=== PATIENT | male | born 1950 | race Caucasian/White ===

== ENCOUNTER → 2020-02-03 07:34 | Outpatient (CLI) | payer SELFPAY ==
--- NOTE | 2020-02-03 07:35 | MR_ITS ---
PROCEDURE: MR ANGIO HEAD WO CON CLINICAL INDICATION: eval for posterior circulation pathology evaluate for posterior circulation pathology. Pt states since dec. 9 of this year he cannot open left eye and if forced open he c/o double visoin. COMPARISON: There are no exams available for comparison, TECHNIQUE: Routine multiplanar multi echo sequences are performed without gadolinium enhancement. FINDINGS: Both vertebral arteries are patent intracranially. The right vertebral is dominant. The basilar artery has an unremarkable appearance giving rise to the posterior cerebral artery on both sides. The left posterior cerebral artery is smaller than the right is specially in its peripheral branches with poor visualization of the peripheral posterior aspect of the left posterior cerebral artery. No obvious aneurysm. 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 The left ICA is somewhat prominent. There is some lobularity the lumen of the left ICA at the sellar portion posteriorly at approximately 2 mm projecting posteriorly suspicious for small aneurysm. There is an additional area of lobulation of the lumen of the left ICA medially at the anterior clinoid/suprasellar region measuring approximately 3 mm also suspicious for a small aneurysm. The. These may represent atheromatous aneurysms or even small ulcers with plaque. The patient is reported to have had a fairly recent CT angiogram of the brain. Please correlate with exam. That exam is made available then an addendum can be given. There is also some lobularity at the anterior communicating artery region. Cannot exclude a small aneurysm at this region. There is occlusion of the right internal carotid artery. The right MCA reconstitutes through an anterior communicating artery. The right MCA does appear slightly smaller. IMPRESSION: 1. 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 The right MCA reconstitutes via anterior communicating artery. 2. Prominent left ICA with luminal irregularities and lobularity is with questionable 2 mm aneurysm in the posterior sellar portion of the left ICA and questionable 3 mm aneurysm at the anterior clinoid portion of the left ICA. Please correlate with recent CT angiogram. 3. Ill definition with lobularity at the anterior communicating artery possibly artifactual. Cannot exclude small aneurysm at this region. Please correlate with recent CTA. 4. Patent vertebral and basilar arteries. The left posterior artery is smaller than the right with small peripheral occipital branches etiology indeterminate. No definite occlusion apparent. Dictated by: Ever Palma MD 02/04/2020 12:45 Ever Palma MD in [place] 02/04/2020 12:45
--- NOTE | 2020-02-03 07:35 | MR_ITS ---
PROCEDURE: MR VENOGRAPHY HEAD WO CON CLINICAL INDICATION: eval for sinus thrombosis Order states to evaluate for sinus thrombosis. Pt states since dec.25 of this year he cannot open left eye and if forced open he c/o double visoin. Pt denies trauma or injury and has no prior imaging here. COMPARISON: MR MR ANGIO HEAD WO CON from 02/03/2020 TECHNIQUE: Routine multiplanar multi echo sequences are performed without gadolinium enhancement. FINDINGS: The superior sagittal sinus has an unremarkable appearance as does the transverse and sigmoid sinus on the right. The transverse sinus on the left appears occluded proximally and is small distally. The left sigmoid sinus is also small. The straight sinus has an unremarkable appearance as does the vein of Won. 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 The lateral aspect of the transverse sinus on the left does appear patent although small. The left sigmoid sinus is also small. Dictated by: Ever Palma MD 02/04/2020 12:50 Ever Palma MD in [place] 02/04/2020 12:50
== END ==
PROVIDERS: PCP Family Medicine; Visit Provider Specialist
DX: R90.89 Other abnormal findings on diagnostic imaging of central nervous system (principal); H49.02 Third [oculomotor] nerve palsy, left eye; I67.2 Cerebral atherosclerosis; I65.22 Occlusion and stenosis of left carotid artery; Z86.69 Personal history of other diseases of the nervous system and sense organs
CPT/HCPCS: 70544